=== PATIENT | female | born 1960 | race African-American/Black ===

== ENCOUNTER 2017-03-03 07:44 | Emergency (ER) | payer MEDICAID ==
[~2017-03-03] VITALS: Ht 162.6 cm; Wt 75.0 kg
[2017-03-03] MEDS ORDERED: ONDANSETRON HCL 4MG/2ML VIAL IV STA (08:23)
[2017-03-03] MEDS ORDERED: MORPHINE SULFATE 4 MG/ML CPJ (NOT FOR IM USE) IV STA (08:23)
[2017-03-03] MEDS ORDERED: SODIUM CHLORIDE 0.9% 1,000 ML IV ONE (08:23)
[2017-03-03 08:35] LABS: BASOPHILS % 1.3 % (0.0-2.0); EOSINOPHILS % 1.5 % (0.0-5.0); HEMATOCRIT. 38.1 % (36.0-48.0); HEMOGLOBIN. 13.1 g/dL (12.0-16.0); LYMPHOCYTES % 33.1 % (20.0-50.0); MEAN CORPUSCULAR HEMOGLOBIN 29.3 pg (28.0-32.0); MEAN PLATELET VOLUME 7.7 fl (7.4-10.4); MONOCYTES % 5.2 % (2.0-8.0); NEUTROPHILS % 58.9 % (40.0-76.0); PLATELET 295 x1000/uL (130-400); RED BLOOD CELL COUNT 4.48 mill/uL (4.2-5.4); RED CELL DISTRIBUTION WIDTH 13.9 % (11.6-14.6)
[2017-03-03 08:43] LABS: INR 1.1
[2017-03-03 08:50] LABS: CARBON DIOXIDE 25 mEq/L (21-32); CHLORIDE 104 mEq/L (98-107)
[2017-03-03 09:20] LABS: CLARITY URINE CLOUDY (CLEAR); COLOR URINE YELLOW (YELLOW); GLUCOSE URINE 3+ (NEGATIVE); KETONES URINE 2+ (NEGATIVE); LEUKOCYTE ESTERASE URINE 2+ (NEGATIVE); NITRITE URINE NEGATIVE (NEGATIVE); OCCULT BLOOD URINE TRACE (NEGATIVE); PROTEIN URINE 1+ (NEGATIVE); SPECIFIC GRAVITY URINE 1.029 (1.005-1.030); UROBILINOGEN URINE 0.2 E.U./dL (0.2-1.0)
[2017-03-03 09:31] VITALS: BP 193/90
[2017-03-03 09:40] LABS: *AMPHETAMINES SCREEN URINE NEGATIVE (NEGATIVE); *BARBITURATES SCREEN URINE NEGATIVE (NEGATIVE); *BENZODIAZEPINES SCREEN URINE NEGATIVE (NEGATIVE); *COCAINE SCREEN URINE PRESUMTIVE POSITIVE (NEGATIVE); CANNABINOID URINE SCREEN NEGATIVE (NEGATIVE); METHADONE URINE SCREEN NEGATIVE (NEGATIVE); OPIATES URINE SCREEN NEGATIVE (NEGATIVE); PHENCYCLIDINE URINE SCREEN NEGATIVE (NEGATIVE)
== END 2017-03-03 10:56 | disposition home or self-care (01) ==
LOC: ER 07:57
DX: R10.84 Generalized abdominal pain (principal); K85.90 Acute pancreatitis without necrosis or infection, unspecified; E11.9 Type 2 diabetes mellitus without complications; I11.9 Hypertensive heart disease without heart failure; I25.2 Old myocardial infarction; F14.10 Cocaine abuse, uncomplicated; F17.200 Nicotine dependence, unspecified, uncomplicated
CPT/HCPCS: 36415; 80053; 80305; 81001; 83690; 85025; 85610; 96361; 96374; 96375; 99284; J2270; J2405; J7030; Z7610

== ENCOUNTER 2017-06-09 06:30 | Emergency (ER) | payer MEDICAID ==
[~2017-06-09] VITALS: Ht 175.3 cm; Wt 68.0 kg
[2017-06-09] MEDS ORDERED: IBUPROFEN 600MG TABLET PO ONE (12:45)
[2017-06-09 13:24] VITALS: BP 142/78
== END 2017-06-09 13:33 | disposition home or self-care (01) ==
LOC: ER 06:30
DX: M79.605 Pain in left leg (principal); R53.1 Weakness; E11.9 Type 2 diabetes mellitus without complications; I10 Essential (primary) hypertension; I25.2 Old myocardial infarction; F14.10 Cocaine abuse, uncomplicated
CPT/HCPCS: 93971; 99284; Z7610